=== PATIENT | male | born 2000 ===

== ENCOUNTER 2021-01-06 22:34 | Emergency (ER) | payer OTHER ==
[~2021-01-06] VITALS: Ht 185.4 cm; Wt 95.5 kg
[2021-01-07 01:24] LABS: COVID AG,FIA SOURCE NASOPHARYNGEAL
[2021-01-07 05:18] LABS: INFLUENZA TYPE A NEGATIVE FOR TYPE A (NEGATIVE); INFLUENZA TYPE B NEGATIVE FOR TYPE B (NEGATIVE)
[2021-01-07 06:15] VITALS: BP 129/78
== END 2021-01-07 06:28 | disposition home or self-care (01) ==
LOC: EMS 22:37
DX: R50.9 Fever, unspecified (principal); R05 Cough; R53.83 Other fatigue; Z20.822 Contact with and (suspected) exposure to COVID-19
CPT/HCPCS: 87426; 87804; 99283; U0003